=== PATIENT | female | born 1960 | race Caucasian/White ===

== ENCOUNTER → 2019-06-29 | Outpatient (CLI) | payer BC, OTHER | LOC: GMA MATASK 16:36 | PROVIDERS: ATTEND Family Medicine | DX: E03.9 Hypothyroidism, unspecified (principal) ==

== ENCOUNTER → 2020-04-06 | Outpatient (CLI) | payer OTHER | LOC: GMAF 17:32 | PROVIDERS: ATTEND Nurse Practitioner Family | DX: N39.0 Urinary tract infection, site not specified (principal) ==

== ENCOUNTER → 2020-04-17 | Outpatient (CLI) | payer OTHER ==
--- NOTE | 2020-04-18 17:02 | MAM ---
EXAM DESCRIPTION: 3D Screening BILATERAL : Digital Mammography. CLINICAL HISTORY: 59 years Female SCREENING . No complaints. Remote family history of breast cancer. Menarche age 9. Childbirth age 19. Menopause age 54. No HRT. Lifetime risk of developing breast cancer (Tyrer-Cuzick model)(%): 6.4. COMPARISON: Bilateral screening digital breast 2-D imaging November 2015. No prior reports available. TECHNIQUE: Bilateral CC and MLO projection full-field images, digital tomosynthesis mammographic technique. Bilateral digital 2-D full-field MLO images. CAD available for 2-D images. FINDINGS: The breast parenchymal density pattern is: Scattered areas of fibroglandular density. No skin thickening or nipple retraction. Solitary microcalcifications. Skin calcifications. Skin mole marker. Intramammary lymph nodes stable mid left breast. No new focal, stellate mass or density, focal asymmetry , and no suspicious microcalcifications bilaterally. Stable mammograms compared to prior study. Taking into account, differences in mammographic technique. IMPRESSION: Benign exam. BIRAD CATEGORY: 2 BENIGN FINDINGS. RECOMMENDATIONS: FOLLOW UP: Routine digital bilateral mammographic screening, one year interval from March 2020. Written communication explaining the IMPRESSION and follow-up, will be mailed to the patient and referring health care provider. According to the [employer], yearly mammograms are recommended starting at age 40 and continuing as long as a woman is in good health. Any breast change noted on a breast self-exam should be reported promptly to the patient's healthcare provider. Breast MRI is recommended for women with an approximately 20-25% or greater lifetime risk of breast cancer, including women with a strong family history of breast or ovarian cancer and women who have been treated for Hodgkin's disease. A negative mammographic report should not delay tissue diagnosis in patients with significant clinical history or physical findings. Extremely dense breast tissue limits the sensitivity of digital mammography. Electronically signed by: Adan Aguilar MD 04/18/2020 5:00 PM CDT
== END ==
LOC: MAMMO 14:57
PROVIDERS: ATTEND Family Medicine
DX: Z12.31 Encounter for screening mammogram for malignant neoplasm of breast (principal)